=== PATIENT | female | born 1955 | race Caucasian/White ===

== ENCOUNTER → 2018-01-17 11:21 | Outpatient (CLI) | payer BC, SELFPAY ==
--- NOTE | 2018-01-17 12:38 | RAD_ITS ---
STUDY: BARIUM ENEMA. REASON FOR EXAM: Female, 62 years old. Incomplete colonoscopy. History of prior rectal carcinoma. FLUOROSCOPY TIME (if supplied): (0:30) minutes/seconds. Images were obtained. TECHNIQUE: A code clerk film was obtained. Following this, barium was introduced retrograde through the rectum. Entire colon was opacified. COMPARISON: None. FINDINGS: There is redundancy of the sigmoid colon. Scattered sigmoid diverticula. There is no evidence of antegrade or retrograde obstruction to the flow of contrast. No mass lesion is seen. RAD/Barium Enema No Air Cont IMPRESSION: Redundancy of the sigmoid colon. Scattered sigmoid diverticula. Electronically Signed: James Ramos MD at 13:57 EST Tel [phone], Service support ,
--- OUTSIDE RECORDS SUMMARY | 2018-03-05 06:50 | XMS RPT_ITS | Clinical Summary ---
:1955 Author Organization Formerly [facility], 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 Allergies, Adverse Reactions, Alerts Observed no known allergies at Results Date Name Value Unit Range Flag Description Office Visit: est annual MEDS REVIEW Done Documentation of current medications (procedure) NKMED T Documentation of current medications (procedure) FALLRSKASSES No Fall risk assessment MAMMOGRAM Normal Bilateral Breast Mammogram screening PAP SMEAR Normal General categories [Interpretation] of Cervical or vaginal smear or scraping by Cyto stain ORALTOBACUSE Never Tobacco smoking status NHIS SMOK STATUS Never smoker Tobacco use [facility] Lab Report: PAP I-G HPV Hi Risk [id number] Negative Negative GE use only - for LinkLogic import when terms are not otherwise specified Plan of Care Type Date Detail Pending order Mammogram, Screening, both breasts Procedures No information available. Vital Signs Date Name Value Unit Description BMI (Body Mass Index) 30.58 kg/m2 Body Mass Index [Ratio] Body Temperature 97.9 [degF] temperature E&M Body Temperature 36.61 Madelin temperature in centigrade E&M BP Diastolic 85 mm[Hg] blood pressure, diastolic - 8462-4 BP Systolic 132 mm[Hg] blood pressure, systolic - 8480-6 Heart Rate 92 /min pulse rate E&M - 8867-4 Height 62 [in_us] height E&M - 8302-2 Height 157.48 cm height in centimeters E&M Respiratory Rate 16 /min respiratory rate E&M - 9279-1 Weight Measured 167.2 [lb_av] weight E&M - 3141-9 Weight Measured 75.84 kg weight in kilograms E&M
--- OUTSIDE RECORDS SUMMARY | 2018-03-05 06:50 | XMS RPT_ITS | Clinical Summary ---
:1955 Author Organization [facility], [facility] Address [address] [place] [address] Phone Care Team Providers Name Role Phone Al LOGISTICS CLERK, Ana Carr Unavailable Conditions or Problems Problem Name Problem Onset Status Entry Provider Comment Standard Annotate Code Date Date Description Mammogram [id number] Active Ana S Screening yearly (SN Al mammography screening CT) LOGISTICS CLERK Routine [id number] Active Ana S Gynecologic gynecological (SN Al examination examination CT) LOGISTICS CLERK Medications Medication Instructions Start Date Stop Date [...] NHIS SMOK STATUS Never smoker Tobacco use [facility] Plan of Care Type Date Detail Appointment 11:00 AM Ana Melendez LOGISTICS CLERK, [address] [facility], [place], [address], Pending order Mammogram, Screening, both breasts Procedures [...]
--- OUTSIDE RECORDS SUMMARY | 2018-03-05 06:50 | XMS RPT_ITS ---
:1955 Author Organization OHIP Care Team Providers Name Role Phone Obdulia Alvarenga Attending Unavailable Obdulia Alvarenga Referring Unavailable Haley Levin Primary Care Unavailable FAVIOLA SHAHID (JEANINE) Attending Unavailable KRAIG PEDROZA Referring Unavailable OBDULIA ALVARENGA Admitting Unavailable OBDULIA ALVARENGA Attending Unavailable HALEY LEVIN Referring Unavailable PROBLEMS PROBLEMS DATE TYPE CONDITION / CODE ATTENDING STATUS SOURCE 01/17/2018 Active Encounter for OBDULIA ALVARENGA Active [facility] screening for [facility] malignant Repository neoplasm of colon / Z12.11(ICD-10) PROCEDURES PROCEDURES No Procedure Records FoundRESULTS RESULTS PROGRESS Observed: 01/17/2018 Status: COMPLETED Source: [place] 5:06 PM [facility] REPOSITORY HNO ID: [id number] Author: Faviola Shahid (Pa) Service: (none) Author Type: Physician Manager Billing Type: Progress Notes Filed: 01/17/2018 5:16 PM Note Text: HISTORY AND PHYSICAL Darby Larson 1955 REFERRING PHYSICIAN: Kraig Pedroza DO CHIEF COMPLAINT: Consult (colonoscopy) HPI: The patient is a 62 year old female referred for endoscopy. Darby notes a personal history of rectal cancer diagnosed in 2000, underwent resection and had radiation therapy. The patient notes she has had some issues with chronic anal irritation and stool leakage since that time. She denies any change in bowel habits, weight changes, blood in stools, black tarry stools or abdominal pain. Denies upper GI complaints. Her last colonoscopy was in January 2013 and she is due for surveillance colonoscopy. Patient's past medical history, in addition to cancer of the rectosigmoid junction, is significant for hyperlipidemia and hemorrhoids. She denies any cardiac or pulmonary issues. Denies problems with sedation in the past. PAST MEDICAL HISTORY Diagnosis Date - Hemorrhage of gastrointestinal tract, unspecified - Internal hemorrhoids without mention of complication - Malignant neoplasm of colon, unspecified site 2000 Colon cancer - Other and unspecified hyperlipidemia - Personal history of malignant neoplasm of rectum, rectosigmoid junction, and anus PAST SURGICAL HISTORY Procedure Laterality Date - CHEMOTHER, IV PUSH TECHNIQUE Chemotherapy - COLONOSCOP W/ OR W/O [facility] SPEC Colonoscopy - 2004 - COLONOSCOP W/ OR W/O BRSH SPEC 01/13/2013 Colonoscopy - COLONOSCOP W/ OR W/O BRS SPEC 01/17/2018 Colonoscopy - LIGATE FALLOPIAN TUBE 1979 - PAST SURGICAL HISTORY OF edg - PAST SURGICAL HISTORY OF port placement - PAST SURGICAL HISTORY OF 2000 resection of rectal cancer - RADIATION TREATMENT MANAGEMENT Radiation therapy - REMOVAL OF HEEL SPUR 01/04/2007, 02/22/2007 Both heels - SLING OPER STRES INCONTINENCE 08/20/07 Prefyx midurethral sling Current Outpatient Prescriptions: Calcium Carb-Magnesium Carb 400-200 mg ORAL Tab Take two tablets daily Docosahexanoic Acid-Eicosapent (FISH OIL) ORAL Cap Take two tablets daily FLAXSEED OIL 1,000 MG CAP 2 times daily GLUCOSAMINE-CHONDROITIN 250 MG-200 MG TAB two tablets, twice daily IBUPROFEN 200 MG TAB as necessary Lactobac no.41/Bifidobact no.7 (PROBIOTIC-10 ORAL) Take by mouth. Multivitamin (DAILY MULTIPLE) ORAL Tab Take one(1) tablet daily. No current facility-administered medications for this visit. 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 - Alcohol/Drug Father - Prostate Cancer Father REVIEW OF SYMPTOMS: The review of systems data was entered by the nurse and reviewed by me Nursing Notes: Paulette Jelani SANTACRUZ 01/14/2018 11:04 AM Signed REVIEW OF SYSTEMS: General: The patient NOTES fatigue, denies weight loss, denies weight gain, denies feeling hot, and denies feelings of cold. Eyes: The patient denies glaucoma, denies eye injury/surgery, wears glasses or contacts. Ear/Nose/Throat: The patient denies allergies, denies hayfever, denies ear infections, and denies bloody noses. Cardiovascular: The patient denies chest pain, denies heart disease, denies high blood pressure,denies cardiac stent, denies prior heart attack, denies irregular heart beat, denies high cholesterol, denies poor circulation, denies heart failure, other cardiac issues, denies claudication, denies cold feet, denies peripheral arterial stent. Respiratory: The patient denies tuberculosis, denies pneumonia, denies frequent cough, denies pulmonary embolism, denies shortness of breath, and denies coughing up blood. Gastrointestinal: The patient denies difficulty swallowing, denies acid reflux, denies ulcers, denies vomiting, denies jaundice/hepatitis, denies gallbladder problems, denies black or tarry stools, denies hemorrhoids, denies bleeding from rectum, denies diverticulitis, denies constipation, denies diarrhea, NOTES loss of stool control, and denies hernias. Kidney/Bladder: The patient denies kidney stones, denies urine infections, and denies bloody urine. Skin: The patient denies a history of skin cancer, denies bleeding/changing moles, and denies a history of skin rash. Neurologic: The patient denies a history of epilepsy/convulsions, denies headaches, denies head/spinal injuries, and denies stroke/TIA. Psychiatric: The patient denies psychiatric medications, denies depression, and denies voices, denies substance abuse. Endocrine: The patient denies thyroid disorders, denies diabetes, and denies hormonal problems. Hematologic: The patient denies a history of bruising, denies bleeding, and denies anemia, denies blood clots. Infections: The patient denies a history of measles and mumps, denies rheumatic fever, and denies sexually transmitted diseases. Musculoskeletal: The patient NOTES back pain/injury, denies back problems, denies sciatica, denies knee/foot trouble, NOTES arthritis, or denies gout. When was patient's last Mammogram screening? 01/2013 Last Colonoscopy: 01/2013 Paulette Palomares LPN I have confirmed and edited as necessary, the PFSH and ROS obtained by others. PHYSICAL EXAMINATION: General: The patient is 62 year old female, well nourished, well hydrated in no acute distress. The patient is oriented to time, place, and person. VITALS: Blood pressure 140/98, pulse 84, weight 73.1 kg (161 lb 3.2 oz). Body mass index is 29.97 kg/m?. HEENT: Normal cephalic, ataumatic, pupils are equally round, sclera are anicteric, mucous membranes are moist, oropharynx is clear. Neck has no masses, asymmetry or lymphadenopathy. Respiratory: Clear to auscultation and percussion. Normal respiratory excursion and pattern. Cardiac: Examination is regular rate and rhythm. Abdominal exam: Soft, nontender, with no palpable masses. No hepatosplenomegaly. No palpable hernias. Rectal exam: exam deferred Extremities: no clubbing, cyanosis or edema. No adenopathy. Other: LABORATORY VALUES: As Noted RADIOLOGIC STUDIES: As Noted Assessment IMPRESSION: personal history of colorectal cancer, encounter for surveillance colonoscopy PLAN: Will plan for colonoscopy. We discussed the risks and benefits of the planned endoscopy. I have informed the patient that complications can occur including failure to complete the endoscopy and perforation. The patient had the opportunity to ask questions concerning the planned endoscopy. My staff has also explained the procedure to the patient in understandable terms and has given the patient printed material concerning the procedure. The patient freely consents to surgery. I plan to use golytely bowel preparation for endoscopy Diagnoses: (Z12.11) Encounter for screening for malignant neoplasm of colon (primary encounter diagnosis) (Z85.048) Personal history of malignant neoplasm of rectum, rectosigmoid junction, and anus My findings have been communicated to Dr. Pedroza via shared medical record. This note will be forwarded to Dr. Haley Levin DO. Return to Clinic: The patient is instructed to follow-up with me after the testing has been completed. Faviola Shahid PA-C BARIUM ENEMA NO AIR Observed: 01/17/2018 Status: F Source: [facility] 12:38 PM [facility] REPOSITORY [facility] Imaging Services [address] [address] Barium Enema No Air Cont MR#: [id number] Acct: [id number] Name: DARBY LARSON Rep #: [id number] : 1955 F 62 From: James Ramos MD PCP: Haley Levin DO Status: REG CLI Study: Barium Enema No Air Cont Date of Exam: 01/17/18 Exam# [id number] Ordering Dr: Obdulia Alvarenga MD STUDY: BARIUM ENEMA. REASON FOR EXAM: Female, 62 years old. Incomplete colonoscopy. History of prior rectal carcinoma. FLUOROSCOPY TIME (if supplied): (0:30) minutes/seconds. Images were obtained. TECHNIQUE: A scout leaser film was obtained. Following this, barium was introduced retrograde through the rectum. Entire colon was opacified. COMPARISON: None. FINDINGS: There is redundancy of the sigmoid colon. Scattered sigmoid diverticula. There is no evidence of antegrade or retrograde obstruction to the flow of contrast. No mass lesion is seen. RAD/Barium Enema No Air Cont IMPRESSION: Redundancy of the sigmoid colon. Scattered sigmoid diverticula. Electronically Signed: James Ramos MD at 13:57 EST Tel [phone], Service support , CC: Obdulia Alvarenga MD; Haley Levin DO Reset Merchandiser: Signed NURSING PROG Observed: 01/17/2018 Status: COMPLETED Source: [place] 10:[address] [facility] REPOSITORY HNO ID: [id number] Author: Milagro WhiteheadRn) LILA Bah Service: (none) Author Type: Registered Nurse Type: Nursing Progress Note Filed: 01/17/2018 1:39 PM Note Text: Patient did not experience a fall prior to discharge. Patient did not experience a burn prior to discharge. Milagro Bah RN NURSING PROG Observed: 01/17/2018 Status: COMPLETED Source: [place] 10:40 AM [facility] REPOSITORY HNO ID: [id number] Author: Milagro Bah RN Service: (none) Author Type: Registered Nurse Type: Nursing Progress Note Filed: 01/17/2018 1:38 PM Note Text: Dr. Alvarenga at bedside and spoke with both pt and . Dr. Alvarenga arranged for pt to go to [facility] and have a Barium Enema at 1230 pm today. Pt doing well with no complaints. Milagro Bah RN PT ED Observed: 01/17/2018 Status: COMPLETED Source: [place] 10:20 AM [facility] REPOSITORY HNO ID: [id number] Author: Milagro Bah RN Service: (none) Author Type: Registered Nurse Type: Patient Education Filed: 01/17/2018 10:28 AM Note Text: POST OP LEARNING RESPONSE INSTRUCTION PROVIDED TO: Patient and Spouse METHOD OF INSTRUCTION: Individual instruction Written instruction - handouts Verbal instruction PATIENT / FAMILY RESPONSE: Verbalizes understanding of: MEDICAL REGIMEN-Importance of following prescribed medical regimen POST-PROCEDURE INSTRUCTIONS-Correct actions to take to reduce post procedure complications WORSENING CONDITION-Signs and symptoms of a worsening condition that warrant a call to the physician FOLLOW-UP PLAN: Patient instructed to call with any further issues Follow up phone call. Contact information given. SUPPLEMENTAL MATERIAL: Procedure discharge instructions REFERRAL (RECOMMENDATION): None Electronically Signed By: Milagro Bah RN In Department: AMBULATORY SURGERY NURSING PROG Observed: 01/17/2018 Status: COMPLETED Source: [place] 10:20 AM [facility] REPOSITORY HNO ID: [id number] Author: Milagro Bah RN Service: (none) Author Type: Registered Nurse Type: Nursing Progress Note Filed: 01/17/2018 1:39 PM Note Text: Pt sitting up in bed tolerating snack and drink. Denies pain or nausea. at bedside. Abd soft and nondistended. Dr. Alvarenga was by and spoke with pt's at 1005. Milagro Bah RN NURSING PROG Observed: 01/17/2018 Status: COMPLETED Source: [place] 10:01 AM [facility] REPOSITORY HNO ID: [id number] Author: Elisha Mcginnis RN Service: Nursing Author Type: Registered Nurse Type: Nursing Progress Note Filed: 01/17/2018 10:01 AM Note Text: Patient did not experience a fall within the Intraoperative area. Patient did not experience a burn within the Intraoperative area. Elisha Mcginnis RN NURSING PROG Observed: 01/17/2018 Status: COMPLETED Source: [place] 9:08 AM [facility] REPOSITORY HNO ID: [id number] Author: Milagro Bah RN Service: (none) Author Type: Registered Nurse Type: Nursing Progress Note Filed: 01/17/2018 9:11 AM Note Text: [facility] PRE-OP NURSING HAND OFF NOTE SBAR Hand off given to Elisha Mcginnis RN. Hand off was communicated verbally and at the patient's bedside and all questions were answered. FALLS/SHEA Patient did not experience a fall within the Preoperative area. Patient did not experience a burn within the Preoperative area. Milagro Bah RN PT ED Observed: 01/17/2018 Status: COMPLETED Source: [place] 8:28 AM [facility] REPOSITORY HNO ID: [id number] Author: Milagro Bah RN Service: (none) Author Type: Registered Nurse Type: Patient Education Filed: 01/17/2018 8:57 AM Note Text: PRE OP LEARNING ASSESSMENT PROCEDURE/SURGERY: GI PROCEDURES: Colonoscopy READINESS TO LEARN COGNITIVE ABILITY: Alert and oriented MOTIVATION TO LEARN: Eager FAMILY SUPPORT: High - Very involved in pt care PATIENT LEARNS BEST BY: Multiple Methods FACTORS AFFECTING LEARNING: None PHYSICAL LIMITATIONS AFFECTING LEARNING: None Electronically Signed By: Milagro Bah RN In Department: AMBULATORY SURGERY HISTORY PHYSICAL Observed: 01/17/2018 Status: COMPLETED Source: [place] 7:07 AM [facility] REPOSITORY HNO ID: [id number] Author: Obdulia Alvarenga Service: (none) Author Type: Physician Type: HANDP Filed: 01/17/2018 9:18 AM Note Text: CC: here for surveillance colonoscopy? ? HPI: aDrby Larson is a 62 year old female. The patient presented in 2000 with rectal bleeding. Colonoscopy revealed a cancerous polyp of the rectosigmoid area. The patient underwent transanal surgical resection. This was followed by chemotherapy and radiation. She has been disease free since then her last colonoscopy was 5 years ago. She presents for followup exam ? ? PAST MEDICAL HISTORY Other and Unspecified Hyperlipidemia Malignant Neoplasm of Colon, Unspecified Site - 2000 (Colon cancer) Hemorrhage of Gastrointestinal Tract, Unspecified Internal Hemorrhoids Without Mention of Complication Personal History of Malignant Neoplasm of Rectum, Rectosigmoid Junction, and Anus ? PAST SURGICAL HISTORY Past Surgical History of (edg) Colonoscop W/ Or W/O Brsh Spec (Colonoscopy - 2004) Past Surgical History of (port placement) Chemother, IV Push Technique (Chemotherapy) Radiation Treatment Management (Radiation therapy) Removal of Heel Spur - 01/04/2007, 02/22/2007 (Both heels) Sling Oper Stres Incontinence - 08/20/07 (Prefyx midurethral sling) Ligate Fallopian Tube - 1979 ? ? SOCIAL HISTORY Smoking Status: Never Smoker Smokeless Status: Never Used Alcohol Use: No ? ? FAMILY HISTORY Mother: Stroke (), Hypertension, Diabetes, Lipids (High Cholesterol), Coronary Artery Disease (Pt has had stints put in.) Father: Alcohol/Drug ? ? ALLERGIES: Seasonal [Other] ? MEDICATIONS: estradiol (VIVELLE-DOT) 0.05 mg/24 hr TWICE WEEKLY medroxyPROGESTERone (PROVERA) 2.5 mg tablet Take 1 tablet by mouth once daily. FLAXSEED OIL 1,000 MG CAP 2 times daily Calcium Carb-Magnesium Carb 400-200 mg ORAL Tab Take two tablets daily Docosahexanoic Acid-Eicosapent (FISH OIL) ORAL Cap Take two tablets daily Multivitamin (DAILY MULTIPLE) ORAL Tab Take one(1) tablet daily. GLUCOSAMINE-CHONDROITIN 250 MG-200 MG TAB two tablets, twice daily IBUPROFEN 200 MG TAB as necessary peg 3350-Electrolytes 236-22.74-6.74 gram suspension Take 240 mL by mouth one time only for 1 dose. REFER TO PRINTED PATIENT INSTRUCTIONS THAT WILL BE MAILED TO YOU ? ? ? ROS: All systems reviewed and negative except as above noted. ? ? ? PHYSICAL EXAM: ? VITALS: BP 150/80 Pulse 72 Wt 157 lb (71.2kg) General Appearance: Well appearing, alert, in no acute distress, well-hydrated, well nourished.. Skin: Skin color, texture, turgor normal, no suspicious rashes or lesions. Eyes: Anicteric sclera. Pupils are equally round and reactive to light. Extraocular movements are intact. Nose/Sinuses: Nares normal. Septum midline. Mucosa normal. No drainage or sinus tenderness.. Oropharynx: Lips, mucosa, and tongue normal, teeth and gingiva normal, oropharynx normal. Neck: Supple, no adenopathy; thyroid symmetric, normal size, no bruits. Back: good flexion and extension, good range of motion, no muscle tenderness, motor and sensory appear to be normal, no evidence of scoliosis. Lungs: Lungs clear to auscultation. No wheezing, rhonchi, rales. Heart: RRR without murmur, gallop, or rubs. No ectopy. Abdomen: Normal abdominal exam, Abdomen soft, non-tender. Bowel sounds normal. No masses, organomegaly. Extremities: No deformities, edema, skin discoloration, clubbing or cyanosis. . Musculoskeletal: Spine range of motion normal. Muscular strength intact, No joint swelling, deformity, or tenderness. ? 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 Her last exam was 5 years ago ? ? PLAN: Colonoscopy with IV today I have discussed the above with the patient. I have offered the patient the procedure of colonoscopy, possible biopsies. I have explained the procedure to the patient. I have counseled the patient as to the risks of the procedure, including but not limited to: infection, bleeding,perforation of the GI tract, inability to complete the procedure, injury to any intraabdominal organs such as liver/spleen, complications of anesthesia, etc. She understands and wishes to proceed. I have answered all questions to the patient?s satisfaction and the patient has no further questions. CNOV Observed: 01/14/2018 Status: COMPLETED Source: [place] 10:00 AM [facility] REPOSITORY [facility] GILES LARSONA S ([id number]) 1955 F Date Time Provider Department 01/14/18 10:00 AM FAVIOLA SHAHID (PA) During your visit today, we recorded the following information about you: Pulse Blood pressure Weight 84/minute 140/98 73.1 kg Paulette Palomares LPN 01/14/2018 11:04 AM Signed REVIEW OF SYSTEMS: General: The patient NOTES fatigue, denies weight loss, denies weight gain, denies feeling hot, and denies feelings of cold. Eyes: The patient denies glaucoma, denies eye injury/surgery, wears glasses or contacts. Ear/Nose/Throat: The patient denies allergies, denies hayfever, denies ear infections, and denies bloody noses. Cardiovascular: The patient denies chest pain, denies heart disease, denies high blood pressure,denies cardiac stent, denies prior heart attack, denies irregular heart beat, denies high cholesterol, denies poor circulation, denies heart failure, other cardiac issues, denies claudication, denies cold feet, denies peripheral arterial stent. Respiratory: The patient denies tuberculosis, denies pneumonia, denies frequent cough, denies pulmonary embolism, denies shortness of breath, and denies coughing up blood. Gastrointestinal: The patient denies difficulty swallowing, denies acid reflux, denies ulcers, denies vomiting, denies jaundice/hepatitis, denies gallbladder problems, denies black or tarry stools, denies hemorrhoids, denies bleeding from rectum, denies diverticulitis, denies constipation, denies diarrhea, NOTES loss of stool control, and denies hernias. Kidney/Bladder: The patient denies kidney stones, denies urine infections, and denies bloody urine. Skin: The patient denies a history of skin cancer, denies bleeding/changing moles, and denies a history of skin rash. Neurologic: The patient denies a history of epilepsy/convulsions, denies headaches, denies head/spinal injuries, and denies stroke/TIA. Psychiatric: The patient denies psychiatric medications, denies depression, and denies voices, denies substance abuse. Endocrine: The patient denies thyroid disorders, denies diabetes, and denies hormonal problems. Hematologic: The patient denies a history of bruising, denies bleeding, and denies anemia, denies blood clots. Infections: The patient denies a history of measles and mumps, denies rheumatic fever, and denies sexually transmitted diseases. Musculoskeletal: The patient NOTES back pain/injury, denies back problems, denies sciatica, denies knee/foot trouble, NOTES arthritis, or denies gout. When was patient's last Mammogram screening? 01/2013 Last Colonoscopy: 01/2013 Paulette Shahid PA-C 01/17/2018 5:16 PM Signed HISTORY AND PHYSICAL Darby Larson 1955 REFERRING PHYSICIAN: Kraig Pedroza DO CHIEF COMPLAINT: Consult (colonoscopy) HPI: The patient is a 62 year old female referred for endoscopy. Darby notes a personal history of rectal cancer diagnosed in 2000, underwent resection and had radiation therapy. The patient notes she has had some issues with chronic anal irritation and stool leakage since that time. She denies any change in bowel habits, weight changes, blood in stools, black tarry stools or abdominal pain. Denies upper GI complaints. Her last colonoscopy was in January 2013 and she is due for surveillance colonoscopy. Patient's past medical history, in addition to cancer of the rectosigmoid junction, is significant for hyperlipidemia and hemorrhoids. She denies any cardiac or pulmonary issues. Denies problems with sedation in the past. PAST MEDICAL HISTORY Diagnosis Date - Hemorrhage of gastrointestinal tract, unspecified - Internal hemorrhoids without mention of complication - Malignant neoplasm of colon, unspecified site 2000 Colon cancer - Other and unspecified hyperlipidemia - Personal history of malignant neoplasm of rectum, rectosigmoid junction, and anus PAST SURGICAL HISTORY Procedure Laterality Date - CHEMOTHER, IV PUSH TECHNIQUE Chemotherapy - COLONOSCOP W/ OR W/O [facility] SPEC Colonoscopy - 2004 - COLONOSCOP W/ OR W/O BRS SPEC 01/13/2013 Colonoscopy - COLONOSCOP W/ OR W/O BRS SPEC 01/17/2018 Colonoscopy - LIGATE FALLOPIAN TUBE 1979 - PAST SURGICAL HISTORY OF edg - PAST SURGICAL HISTORY OF port placement - PAST SURGICAL HISTORY OF 2000 resection of rectal cancer - RADIATION TREATMENT MANAGEMENT Radiation therapy - REMOVAL OF HEEL SPUR 01/04/2007, 02/22/2007 Both heels - SLING OPER STRES INCONTINENCE 08/20/07 Prefyx midurethral sling Current Outpatient Prescriptions: Calcium Carb-Magnesium Carb 400-200 mg ORAL Tab Take two tablets daily Docosahexanoic Acid-Eicosapent (FISH OIL) ORAL Cap Take two tablets daily FLAXSEED OIL 1,000 MG CAP 2 times daily GLUCOSAMINE-CHONDROITIN 250 MG-200 MG TAB two tablets, twice daily IBUPROFEN 200 MG TAB as necessary Lactobac no.41/Bifidobact no.7 (PROBIOTIC-10 ORAL) Take by mouth. Multivitamin (DAILY MULTIPLE) ORAL Tab Take one(1) tablet daily. No current facility-administered medications for this visit. 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 - Alcohol/Drug Father - Prostate Cancer Father REVIEW OF SYMPTOMS: The review of systems data was entered by the nurse and reviewed by il Nursing Notes: Paulette Palomares LPN 01/14/2018 11:04 AM Signed REVIEW OF SYSTEMS: General: The patient NOTES fatigue, denies weight loss, denies weight gain, denies feeling hot, and denies feelings of cold. Eyes: The patient denies glaucoma, denies eye injury/surgery, wears glasses or contacts. Ear/Nose/Throat: The patient denies allergies, denies hayfever, denies ear infections, and denies bloody noses. Cardiovascular: The patient denies chest pain, denies heart disease, denies high blood pressure,denies cardiac stent, denies prior heart attack, denies irregular heart beat, denies high cholesterol, denies poor circulation, denies heart failure, other cardiac issues, denies claudication, denies cold feet, denies peripheral arterial stent. Respiratory: The patient denies tuberculosis, denies pneumonia, denies frequent cough, denies pulmonary embolism, denies shortness of breath, and denies coughing up blood. Gastrointestinal: The patient denies difficulty swallowing, denies acid reflux, denies ulcers, denies vomiting, denies jaundice/hepatitis, denies gallbladder problems, denies black or tarry stools, denies hemorrhoids, denies bleeding from rectum, denies diverticulitis, denies constipation, denies diarrhea, NOTES loss of stool control, and denies hernias. Kidney/Bladder: The patient denies kidney stones, denies urine infections, and denies bloody urine. Skin: The patient denies a history of skin cancer, denies bleeding/changing moles, and denies a history of skin rash. Neurologic: The patient denies a history of epilepsy/convulsions, denies headaches, denies head/spinal injuries, and denies stroke/TIA. Psychiatric: The patient denies psychiatric medications, denies depression, and denies voices, denies substance abuse. Endocrine: The patient denies thyroid disorders, denies diabetes, and denies hormonal problems. Hematologic: The patient denies a history of bruising, denies bleeding, and denies anemia, denies blood clots. Infections: The patient denies a history of measles and mumps, denies rheumatic fever, and denies sexually transmitted diseases. Musculoskeletal: The patient NOTES back pain/injury, denies back problems, denies sciatica, denies knee/foot trouble, NOTES arthritis, or denies gout. When was patient's last Mammogram screening? 01/2013 Last Colonoscopy: 01/2013 Paulette Palomares LPN I have confirmed and edited as necessary, the PFSH and ROS obtained by others. PHYSICAL EXAMINATION: General: The patient is 62 year old female, well nourished, well hydrated in no acute distress. The patient is oriented to time, place, and person. VITALS: Blood pressure 140/98, pulse 84, weight 73.1 kg (161 lb 3.2 oz). Body mass index is 29.97 kg/m?. HEENT: Normal cephalic, ataumatic, pupils are equally round, sclera are anicteric, mucous membranes are moist, oropharynx is clear. Neck has no masses, asymmetry or lymphadenopathy. Respiratory: Clear to auscultation and percussion. Normal respiratory excursion and pattern. Cardiac: Examination is regular rate and rhythm. Abdominal exam: Soft, nontender, with no palpable masses. No hepatosplenomegaly. No palpable hernias. Rectal exam: exam deferred Extremities: no clubbing, cyanosis or edema. No adenopathy. Other: LABORATORY VALUES: As Noted RADIOLOGIC STUDIES: As Noted Assessment IMPRESSION: personal history of colorectal cancer, encounter for surveillance colonoscopy PLAN: Will plan for colonoscopy. We discussed the risks and benefits of the planned endoscopy. I have informed the patient that complications can occur including failure to complete the endoscopy and perforation. The patient had the opportunity to ask questions concerning the planned endoscopy. My staff has also explained the procedure to the patient in understandable terms and has given the patient printed material concerning the procedure. The patient freely consents to surgery. I plan to use golytely bowel preparation for endoscopy Diagnoses: (Z12.11) Encounter for screening for malignant neoplasm of colon (primary encounter diagnosis) (Z85.048) Personal history of malignant neoplasm of rectum, rectosigmoid junction, and anus My findings have been communicated to Dr. Pedroza via shared medical record. This note will be forwarded to Dr. Haley Levin DO. Return to Clinic: The patient is instructed to follow-up with me after the testing has been completed. Faviola Shahid PA-C Referring Provider: KRAIG PEDROZA [[id number]] Allergies As of Date: 01/14/2018 Noted Allergy Reaction Seasonal [Other] 03/14/2006 Date Reviewed: 01/14/2018 Reviewed by: Faviola Shahid (Pa) - Fully Assessed Reason for Visit: Consult [173] Cmt: colonoscopy Primary Visit Diagnosis:Personal history of malignant neoplasm of rectum, rectosigmoid junction, and anus [Z85.048] Other Visit Diagnosis:Encounter for screening for malignant neoplasm of colon [Z12.11] Order(s):[] peg 3350-Electrolytes (GOLYTELY) 236-22.74-6.74 -5.86 gram suspensionTake 4,000 mL by mouth one time only for 1 dose.Disp: 1 BottleRfl: 0 Prescriptions as of 01/14/2018 Sig: * CALCIUM CARB-MAGNESIUM CARB 4* Take two tablets daily * FISH OIL 500 MG CAPSULE Take two tablets daily * FLAXSEED OIL 1,000 MG CAPSULE 2 times daily * GLUCOSAMINE-CHONDROITIN 250 M* two tablets, twice daily * IBUPROFEN 200 MG TABLET as necessary PROBIOTIC-10 ORAL Take by mouth. * DAILY MULTIPLE TABLET Take one(1) tablet daily. PEG 3350-ELECTROLYTES 236 GRA* Take 4,000 mL by mouth one ti* X ESTRADIOL 0.0375 MG/24 HR KENNETH* Apply 1 Patch as directed twi* Patient not taking: Reported on 01/14/2018 X MEDROXYPROGESTERONE 2.5 MG TA* Take 1 tablet by mouth once d* Patient not taking: Reported on 01/14/2018 Problem List As Of Date 01/14/2018 Noted Resolved HYPERLIPIDEMIA NEC/NOS [E78.5] PMH - PAST MEDICAL HISTORY OF More... CALCANEAL SPUR [M77.30] INVALID FOR* MALIG NEOPLASM RECTOSIGMOID JCT [C19] INVALID FOR* Visit Notes: >> Paulette Palomares LPN Mon Jan 14, 2018 11:03 AM Status: Signed REVIEW OF SYSTEMS: General: The patient NOTES fatigue, denies weight loss, denies weight gain, denies feeling hot, and denies feelings of cold. Eyes: The patient denies glaucoma, denies eye injury/surgery, wears glasses or contacts. Ear/Nose/Throat: The patient denies allergies, denies hayfever, denies ear infections, and denies bloody noses. Cardiovascular: The patient denies chest pain, denies heart disease, denies high blood pressure,denies cardiac stent, denies prior heart attack, denies irregular heart beat, denies high cholesterol, denies poor circulation, denies heart failure, other cardiac issues, denies claudication, denies cold feet, denies peripheral arterial stent. Respiratory: The patient denies tuberculosis, denies pneumonia, denies frequent cough, denies pulmonary embolism, denies shortness of breath, and denies coughing up blood. Gastrointestinal: The patient denies difficulty swallowing, denies acid reflux, denies ulcers, denies vomiting, denies jaundice/hepatitis, denies gallbladder problems, denies black or tarry stools, denies hemorrhoids, denies bleeding from rectum, denies diverticulitis, denies constipation, denies diarrhea, NOTES loss of stool control, and denies hernias. Kidney/Bladder: The patient denies kidney stones, denies urine infections, and denies bloody urine. Skin: The patient denies a history of skin cancer, denies bleeding/changing moles, and denies a history of skin rash. Neurologic: The patient denies a history of epilepsy/convulsions, denies headaches, denies head/spinal injuries, and denies stroke/TIA. Psychiatric: The patient denies psychiatric medications, denies depression, and denies voices, denies substance abuse. Endocrine: The patient denies thyroid disorders, denies diabetes, and denies hormonal problems. Hematologic: The patient denies a history of bruising, denies bleeding, and denies anemia, denies blood clots. Infections: The patient denies a history of measles and mumps, denies rheumatic fever, and denies sexually transmitted diseases. Musculoskeletal: The patient NOTES back pain/injury, denies back problems, denies sciatica, denies knee/foot trouble, NOTES arthritis, or denies gout. When was patient's last Mammogram screening? 01/2013 Last Colonoscopy: 01/2013 Paulette Palomares LPN Prescriptions ordered this encounter Disp Refills Start End PEG 3350-ELECTROLYTES 236 GRAM-22.74* 1 Eitan* 0 01/14/2018 01/14/2018 Route: ORAL Sig: Take 4,000 mL by mouth one time only for 1 dose. Follow-up and Disposition History Recorded Encounter Status:Closed by FAVIOLA SHAHID PA-C on 01/17/18 HOSP Observed: 01/14/2018 Status: COMPLETED Source: [place] 12:00 AM [facility] REPOSITORY Patient:Darby Larson MRN: <[id number]> Height:5' 1.5(1.562 m) Weight:161 lb 3.2 oz (73.12 kg) Outpatient Medications as of 01/17/18: Calcium Carb-Magnesium Carb 400-200 mg ORAL Tab Docosahexanoic Acid-Eicosapent (FISH OIL) ORAL Cap FLAXSEED OIL 1,000 MG CAP GLUCOSAMINE-CHONDROITIN 250 MG-200 MG TAB IBUPROFEN 200 MG TAB Lactobac no.41/Bifidobact no.7 (PROBIOTIC-10 ORAL) Multivitamin (DAILY MULTIPLE) ORAL Tab Admission/Clinic Administered Medications as of 01/17/18: lactated ringers infusion Problem List: Other and unspecified hyperlipidemia [E78.5] PMH - PAST MEDICAL HISTORY OF [] Calcaneal spur [M77.30] 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 Rosa Clement Psr Progress Notes ([facility]): Rosa Clement Psr 01/04/2018 11:32 AM Signed [facility] OPEN ACCESS QUESTIONNAIRE 1. Are you or could you be ? No 2. Are you currently having any stomach/gastrointestinal issues at this time such as constipation, diarrhea, abdominal pain, rectal bleeding etc? No 3. Do you have an implanted device such as a defibrillator, pacemaker, Cardiac Stent or deep brain stimulation device? No 4. Do you have any new or past cardiac (heart) or pulmonary (lung) issues? No 5. Is the patient's BMI 40 or greater? No:There is no height or weight on file to calculate BMI.. Last Wt 02/19/13 : 69.4 kg (153 lb) Last Ht 02/19/13 : 156.2 cm (5' 1.5) 6. Have you had difficulty with prior sedations or complications with other procedures? No 7. Have you had difficulty with anesthesia previously re: ? Difficult intubation? No ? Other difficulty or allergic reaction to anesthesia other than post op N/V? No 8. Do you currently use oxygen or a breathing machine at night? No 9. Do you take any narcotics, depression or anti-Anxiety medications or 3 or more prescription drugs on a daily basis? No 10. Do you use any illegal or recreational drugs? No 11. Have you been hospitalized in the past 6 weeks? No 12. Are you on dialysis or have Chronic Kidney Disease? No 13. Have you been diagnosed with chronic liver disease such as hepatitis or cirrhosis? No 14. Do you have a seizure disorder? No 15. Do you have difficulty swallowing? No 16. Do you have ulcerative colitis or Crohn's disease? No 17. Do you take any Blood thinners, including Aspirin or fish oil? No 18. Do you have any blood disorders (re:hemophiliac)? No 19. Are you Diabetic? No 20. Any other important health information we should be made aware of prior to your colonoscopy? No 21. Any alcohol use: No. To be completed by LIP: Patient appropriate for Open Access Colonoscopy: Yes: appropriate for Open Access Procedure Checklist: Prior to closing the encounter: ? Complete questionnaire: Yes ? Confirm Prep order has been Ordered/Pended: Yes. ? Patient's procedure could be delayed if not given the script for the prep. Please ensure the prep is escripted to pharmacy or printed. Instructions for the prep will print upon filing or pending this smartset. ? Please send all open access questionnaires to [facility] Sched Pool #[id number] Rosa Clement Psr 01/04/2018 11:30 AM Signed Health Information For Patients and the Community How to Prepare for Your Colonoscopy Using Golytely, Nulytely, Trilyte or Colyte Preparations IMPORTANT - Please Read These Instructions at Least 2 Weeks Before Your Colonoscopy Celis Instructions: ?Your bowel must be empty so that your doctor can clearly view your colon. Follow all of the instructions in this handout EXACTLY as they are written. If you do NOT follow the directions for when to start drinking the bowel preparation (see next page), your colonoscopy WILL be cancelled. ?Do NOT eat any solid food the ENTIRE day before your colonoscopy. ?Buy your bowel preparation at least 5 days before your colonoscopy. ?Do NOT mix the solution until the day before your colonoscopy. Designated Web Machine Tender on the Day of Your Exam A responsible family member or friend MUST come with you to your colonoscopy and REMAIN in the endoscopy area until you are discharged! You are NOT ALLOWED to drive, take a taxi or bus, or leave the Endoscopy Center ALONE. If you do not have a responsible truck driver salesperson (family member or friend) with you to take you home, your exam cannot be done with sedation and will be cancelled. Medications Some of the medicines you take may need to be stopped or adjusted before your colonoscopy. You MUST call the doctor who ordered any of the following medicines at least 2 weeks before your colonoscopy. ?Blood thinners -- such as Coumadin? (warfarin), Plavix? (clopidogrel), Ticlid? (ticlopidine hydrochloride), Agrylin? (anagrelide), Xarelto? (Rivaroxaban), Pradaxa? (Dabigatran), Eliquis? (Apixaban), and Effient? (Prasugrel). ?Insulin or diabetes pills. Please call the doctor that monitors your glucose levels. Your insulin dosage may need to be adjusted due to the diet restrictions required with this bowel preparation. (Please bring your diabetes medicines with you on the day of your procedure.) If you take aspirin, take it and ALL other medications prescribed by your doctor. On the day of your colonoscopy, take your medications with a sip of water. Revised 03/2016 1 Five (5) Days Before Your Colonoscopy ?Do NOT take medicines that stop diarrhea -- such as Imodium?, Kaopectate?, or Pepto Bismol?. ?Do NOT take fiber supplements -- such as Metamucil?, Citrucel?, or Perdiem?. ?Do NOT take products that contain iron -- such as multi-vitamins -- (the label lists what is in the products). ?Do NOT take vitamin E. Buy the prescription bowel preparation solution at your local pharmacy or drugstore pharmacy. Three (3) Days Before Your Colonoscopy Do NOT eat high-fiber foods -- such as popcorn, beans, seeds (flax, sunflower, quinoa), multigrain bread, nuts, salad/vegetables, or fresh and dried fruit. One (1) Day Before Your Colonoscopy Only drink clear liquids the ENTIRE DAY before your colonoscopy. Do NOT eat any solid foods. Drink at least 8 ounces of clear liquids every hour after waking up. The clear liquids you can drink include: ?water, apple, or white grape juice; broth; coffee or tea (without milk or creamer); clear carbonated beverages such as raquel radha or lemon-jamul soda; Gatorade? or other sports drinks (not red); Drake-Aid? or other flavored drinks (not red). You may eat plain jello or other gelatins (not red) or popsicles (not red). Do NOT drink alcohol on the day before or the day of the procedure. 2 Revised 03/2016 When to Mix and Drink Your Bowel Prep Follow the instructions on the label. After mixing, place the solution in the refrigerator for a couple of hours before drinking. You may add the flavor packet that came with the bowel preparation. DO NOT add ice, sugar or any flavorings to the solution. Evening Before Your Colonoscopy ?Start drinking the bowel preparation at 6 PM the evening before your colonoscopy. Drink an 8-oz glass of bowel preparation every 10 minutes. You must finish drinking the solution by 9 PM the night before your scheduled procedure. ?You may continue to drink clear liquids only until midnight. Do NOT eat or drink ANYTHING after midnight the night before your procedure or your procedure may be cancelled. This is for your safety and will reduce the risk of having any food or liquid in your stomach move into your lungs (aspiration) during a procedure. If you take aspirin, take it and ALL other prescribed medicines with a sip of water on the day of your colonoscopy. Contact Information: If you are unable to keep your appointment or have any questions about the instructions, please call the facility where the procedure is being performed. Call between the hours of 8:00 AM and 5:00 PM. If you are calling after 5:00 PM, please call Nurse non profit job titles at [phone]. [facility] [address] [address] Index # [id number] Revised 03/2016 3 Colonoscopy Procedure Overview Please Read Prior to the Procedure What is a Colonoscopy A colonoscopy is an outpatient procedure in which the inside of the large intestine (colon and rectum) is examined. A colonoscopy is commonly used to evaluate gastrointestinal symptoms, such as rectal and intestinal bleeding, abdominal pain, or changes in bowel habits. Colonoscopies are also performed in individuals without symptoms to check for colorectal polyps or cancer. A screening colonoscopy is recommended for anyone 50 years of age and older, and for anyone with parents, siblings or children with a history of colorectal cancer or polyps. What Happens Before a Colonoscopy To have a successful colonoscopy, your bowel must be empty so that your physician can clearly view the colon. To do this, it is very important to read and follow all of the instructions given to you at least 2 weeks BEFORE your exam. If your bowel is not empty, your colonoscopy will not be successful and may have to be repeated. If you feel nauseated or vomit while taking the bowel preparation, wait 30 minutes before drinking more fluid and start with small sips of solution. Some activity (such as walking) or a few soda crackers may help decrease the nausea you are feeling. If the nausea persists, please contact nurse oncology navigator at [phone]. You may experience skin irritation around the anus due to the passage of liquid stools. To prevent and treat skin irritation, you should: ?Apply Vaseline? or Desitin? ointment to the skin around the anus before drinking the bowel preparation medications. These products can be purchased at any drugstore. ?Wipe the skin after each bowel movement with disposable wet wipes instead of toilet paper. These are found in the toilet paper area of the store. ?Sit in a bathtub filled with warm water for 10 to 15 minutes after you finish passing a stool; after soaking, blot the skin dry with a soft cloth, apply Vaseline? or Desitin? ointment to the anal area, and place a cotton ball just outside your anus to absorb leaking fluid. What Happens During a Colonoscopy During a colonoscopy, an experienced physician uses a colonoscope (a long, flexible instrument about 1/2 inch in diameter) to view the lining of the colon. The colonoscope is inserted into the rectum and advanced through the large intestine. If necessary during a colonoscopy, small amounts of tissue can be removed for analysis (a biopsy) and polyps can be identified and entirely removed. In many cases, a colonoscopy allows accurate diagnosis and treatment of colorectal problems without the need for a major operation. Revised 03/2016 5 ?You are asked to wear a hospital gown and an IV will be started. ?You are given a pain reliever and a sedative intravenously (in your vein). You will feel relaxed and somewhat drowsy. ?You will lie on your left side, with your knees drawn up towards your chest. ?A small amount of air is used to expand the colon so the physician can see the colon figueroa. ?You may feel mild cramping during the procedure. Cramping can be reduced by taking slow, deep breaths. ?The colonoscope is slowly withdrawn while the lining of your bowel is carefully examined. ?The procedure lasts from 30 minutes to 1 hour. What Happens After a Colonoscopy ?You will stay in a recovery room for observation until you are ready for discharge. ?You may feel some cramping or a sensation of having gas, but this quickly passes. ?If sedation has been given, a responsible family member or friend must drive you home. ?Avoid alcohol, driving, and operating machinery for 24 hours following the procedure. ?Unless otherwise instructed, you may immediately return to your normal diet. We recommend you wait until the day after your procedure to resume normal activities. ?If polyps were removed or a biopsy was taken, the physician performing your colonoscopy will tell you when it is safe to resume taking your blood thinners. ?If a biopsy was taken or a polyp was removed, you may notice a little amount of rectal bleeding for 1 to 2 days after the procedure. If you have a large amount of rectal bleeding, high or persistent fevers, or severe abdominal pain within the next 2 weeks, please go to your local emergency room and call the physician who performed your exam. 6 Revised 03/2016 ?Copyright 9184-8125 [facility]. All rights reserved. Revised 03/2016 ALLERGIES ALLERGIES DATE TYPE / CODE NAME / CODE REACTION SEVERITY SOURCE 03/14/2006 Miscellaneous OTHER [facility] Allergy/[id number]([facility] NOMED CT) Repository ENCOUNTERS ENCOUNTERS ADMIT/DISCHARGE ACCOUNT ADMITTING ENCOUNTER LOCATION SOURCE NUMBER CLASS 01/17/2018 [id number] Ambulatory [facility] ing:RAD Repository 01/17/2018/01/18/20 [id number] OBDULIA ALVARENGA Ambulatory [address] Repository 01/14/2018/01/19/[id number] Repository PAYERS PAYERS ENCOUNTER GUARANTOR PAYER SUBSCRIBER SOURCE 01/17/2018 DARBY Carr Primary YURY Galindo [id number] FRANC Insurance:ANTHEMPolic BASSAMDOB: [facility] Number: [id number] [address]Gzt: (275) [id number] Repository [phone] () Date:[id number] [place] [id number]: 01/17/2018 Secondary NOT GIVENMICHAEL AndersMateo Insurance:SELF PAY [facility] Number: Effective Repository Date:2018-01-17
--- OUTSIDE RECORDS SUMMARY | 2018-03-05 06:50 | XMS RPT_ITS | Clinical Summary ---
:1955 Author Organization [facility] Address [address] [place] [address] Phone Care Team Providers Name Role Phone Al TELECOM SPECIALIST, Ana Carr Unavailable Conditions or Problems Problem Name Problem Onset Status Entry Provider Comment Standard Annotate Code Date Date Description Mammogram 59099689 Active Ana S Screening yearly (SN Al mammography screening CT) TELECOM SPECIALIST Routine [id number] Active Ana S Gynecologic gynecological (SN Al examination examination CT) TELECOM SPECIALIST Medications Medication Instructions Start Date Stop Date [...] NHIS SMOK STATUS Never smoker Tobacco use [facility] Plan of Care Type Date Detail Appointment 11:00 AM Ana Melendez TELECOM SPECIALIST, [address] [facility], [address] Floor, [place], [id number], Pending order Mammogram, Screening, both breasts Procedures [...]
--- OUTSIDE RECORDS SUMMARY | 2018-03-05 06:50 | XMS RPT_ITS | Clinical Summary ---
:1955 Author Organization [facility], [facility] Address [address] [place] [address] Phone Care Team Providers Name Role Phone Vivienne Bonilla MD Unavailable Conditions or Problems Problem Name Problem Onset Status Entry Provider Comment Standard Annotate Code Date Date Description Mammogram 08790689 Active Ana S Screening yearly (SN Al mammography screening CT) SKIN PEELING MACHINE OPERATOR Routine [id number] Active Ana S Gynecologic gynecological (SN Al examination examination CT) SKIN PEELING MACHINE OPERATOR Medications Medication Instructions Start Date Stop Date [...] NHIS SMOK STATUS Never smoker Tobacco use [facility] Lab Report: PAP I-G HPV [...]
--- OUTSIDE RECORDS SUMMARY | 2018-03-05 06:50 | XMS RPT_ITS | Clinical Summary ---
:1955 Author Organization [facility], [facility] Address [address] [place] [address] Phone Care Team Providers Name Role Phone Vivienne Bonilla MD Unavailable Conditions or Problems Problem Name Problem Onset Status Entry Provider Comment Standard Annotate Code Date Date Description Mammogram [id number] Active Ana S Screening yearly (SN Al mammography screening CT) BODY DESIGN CHECKER Routine 11960628 Active Ana S Gynecologic gynecological (SN Al examination examination CT) BODY DESIGN CHECKER Medications Medication Instructions Start Date Stop Date [...] NHIS SMOK STATUS Never smoker Tobacco use [facility] Lab Report: PAP I-G HPV Hi Risk [...]
== END ==
PROVIDERS: Family Provider Family Medicine; PCP Family Medicine; Referring Provider Surgery; Visit Provider Surgery
DX: Z53.8 Procedure and treatment not carried out for other reasons (principal); K57.30 Diverticulosis of large intestine without perforation or abscess without bleeding; Z85.048 Personal history of other malignant neoplasm of rectum, rectosigmoid junction, and anus
CPT/HCPCS: 74270

== ENCOUNTER → 2018-08-05 | Outpatient (CLI) | payer BC, SELFPAY ==
--- NOTE | 2018-08-05 09:43 | RAD_ITS ---
STUDY: X-RAY - LEFT SHOULDER REASON FOR EXAM: Female, 62 years old. Left shoulder pain TECHNIQUE: 3 view(s) of the shoulder. COMPARISON: None. FINDINGS: Normal glenohumeral articulation. Normal acromioclavicular joint. Normal acromion. Normal humeral head and visualized proximal humerus. The soft tissue structures are unremarkable. Normal visualized pulmonary apex. RAD/Shoulder min 2 Views IMPRESSION: Normal x-ray examination of the shoulder. Electronically Signed: Richard Bauer, at 10:11 EDT Tel , Service support ,
== END | disposition home or self-care (01) ==
LOC: MTRAD 09:41
PROVIDERS: Family Provider Family Medicine; PCP Family Medicine; Referring Provider Family Medicine; Visit Provider Family Medicine
DX: M25.512 Pain in left shoulder (principal)
CPT/HCPCS: 73030

== ENCOUNTER → 2018-11-11 09:36 | Outpatient (CLI) | payer BC, SELFPAY ==
[2018-11-11 12:31] LABS: Erythrocyte Sedimentation Rate 25 mm/hr (0-30)
[2018-11-11 12:45] LABS: ALB/GLOB Ratio 0.9 RATIO (0.9-2.4); AST(SGOT) 18 U/L (15-37); Alanine Aminotransfer ALT/SGPT 27 U/L (13-56); Albumin, Serum 3.6 g/dL (3.2-5.0); Alkaline Phosphatase 86 U/L (45-117); Anion Gap 10 (5-15); BUN 12 mg/dL (7-18); BUN/Creat Ratio 16.6 RATIO (10-20); CRP < 2.90 mg/L (0.0-3.0); Calcium,Total 8.7 mg/dL (8.5-10.1); Chloride 107 mmol/L (98-107); Creatinine, Serum 0.72 mg/dL (0.55-1.02); EST Glomerular Filtration Rate 87 mL/min (>60); Est Glom Filt Rate - Afr Amer 105 mL/min (>60); Globulin 3.9 g/dL (2.2-4.2); Glucose 103 mg/dL (74-106); Potassium 4.2 mmol/L (3.5-5.1); Protein, Total 7.5 g/dL (6.4-8.2); Rheumatoid Factor < 10.0 IU/mL (<15); Sodium Level 142 mmol/L (136-145)
[2018-11-13 13:11] LABS: CCP IgG Antibodies 9 units (0-19)
[2018-11-13 13:21] LABS: ANTINUCLEAR ANTIBODIES DIRECT Negative (Negative)
== END ==
PROVIDERS: Family Provider Family Medicine; PCP Family Medicine; Visit Provider Family Medicine
DX: M25.50 Pain in unspecified joint (principal); M79.10 Myalgia, unspecified site; L30.8 Other specified dermatitis
CPT/HCPCS: 36415; 80053; 85652; 86038; 86140; 86200; 86225; 86235; 86431

== ENCOUNTER → 2018-12-03 | Outpatient (CLI) | payer SELFPAY ==
--- NOTE | 2018-12-03 12:30 | CT_ITS ---
STUDY: CARDIAC CALCIUM SCORING - CT CHEST REASON FOR EXAM: Female, 63 years old. Hyperlipidemia. RADIATION DOSAGE (If Supplied By Facility): CTDIvol = ( 12.19 ) mGy, DLP = ( 195.04 ) mGycm TECHNIQUE: Axial non-enhanced images were acquired through the heart for the sole purpose of measuring coronary artery calcium. Individualized dose optimization techniques were used for this CT. COMPARISON: None. FINDINGS: Please see the patient's medical record for a personalized calcium score. There is dependent atelectasis noted in the right lower lobe. The visualized lungs are otherwise clear. The visualized soft tissues are within normal limits. CT/Limited Chest CT w/CCTA IMPRESSION: Please see the patient's medical record for a personalized calcium score. Please go to: [email or web address] , for a description of the calculator. Electronically Signed: Pola Melendrez, at 19:13 EDT Tel , Service support ,
[2018-12-03 12:49] VITALS: BP 166/92; PULSE 67; RESP 14; O2SAT 97; BMI 29.8
--- NOTE | 2018-12-03 16:29 | CA.SCORE ---
Calcium Scoring Date of Study:: 12/03/18 Coronary Calcium Scoring: High-resolution Computed Tomographic imaging of the chest was performed on [12/03/2018], with particular attention paid to the coronary arteries. Images from the examination were analyzed for the presence and extent of coronary artery calcification , using coronary calcium quantification software. The patient tolerated the procedure well and there were no complications. The results of the coronary calcification analysis are provided below. - Findings Left Main (LM): 0 Left Anterior Descending (LAD): 51.3 Left Circumflex (LCX): 0 Right Coronary Artery (RCA): 82.5 Total Agatston Score: 133.8 Percentile Rankin-90 Calcium Scoring Interpretation: 0 No identifiable atherosclerotic plaque. Very low cardiovascular disease risk. <5% chance of presence coronary artery disease A Negative Examination 1-10 Minimal Plaque burden. Significant coronary artery disease very unlikely. 11-100 Mild plaque burden. Likely mild or minimal coronary atherosclerosis. 101-400 Moderate plaque burden Moderate non-obstructive coronary artery disease highly likely. Over 400 Extensive plaque burden. High likelihood of at least one significant coronary stenosis (>50% diameter) Conclusion: The total calcium score (134) is between the 75th and 90th percentile for women between the ages of 60 and 64. (Exact percentile calculated to be 83%; this means 82% of the population has a lower calcium score and 17% of the population is a higher calcium score than this patient.) Full evaluation of cardiac risk including assessment of all conventional risk factors, and the scores and percentile rankings reported herein should be evaluated in this context.
== END | disposition home or self-care (01) ==
PROVIDERS: Family Provider Family Medicine; PCP Family Medicine; Referring Provider Family Medicine; Visit Provider Family Medicine
DX: E78.5 Hyperlipidemia, unspecified (principal); Z82.49 Family history of ischemic heart disease and other diseases of the circulatory system
CPT/HCPCS: 75571; 76380

== ENCOUNTER → 2018-12-21 11:41 | Outpatient (CLI) | payer BC, SELFPAY ==
[2018-12-03 12:49] VITALS: BMI 29.8
--- NOTE | 2018-12-21 12:00 | EKG12_ITS ---
Test Reason : PRE OP Blood Pressure : / mmHG Vent. Rate : 071 BPM Atrial Rate : 071 BPM P-R Int : 138 ms QRS Dur : 064 ms QT Int : 372 ms P-R-T Axes : 031 024 036 degrees QTc Int : 404 ms Normal sinus rhythm Normal ECG Confirmed by KINGSTON WARE, HEYDI ([id number]), editor trade journal NETTA SUAZO ([id number]) on 12/24/2018 11:33:03 AM Referred By: Jc Boles Confirmed By:HEYDI ONOFRE MD
[2018-12-21 12:38] LABS: Anion Gap 7 (5-15); BUN 10 mg/dL (7-18); BUN/Creat Ratio 13.2 RATIO (10-20); Calcium,Total 8.8 mg/dL (8.5-10.1); Chloride 105 mmol/L (98-107); Creatinine, Serum 0.76 mg/dL (0.55-1.02); EST Glomerular Filtration Rate 82 mL/min (>60); Est Glom Filt Rate - Afr Amer 99 mL/min (>60); Glucose 105 mg/dL (74-106); Potassium 4.3 mmol/L (3.5-5.1); Sodium Level 142 mmol/L (136-145)
[2018-12-21 12:42] LABS: Hematocrit 43.1 % (37-47); Hemoglobin 13.9 g/dL (12.0-15.0); Mean Corp Hgb Conc 32.3 g/dL (32-36); Mean Corpuscular Hgb 29.7 pg (27.0-32.0); Mean Corpuscular Volume 92.1 fL (81-99); Mean Platelet Vol. 10.7 fl (6.2-12.0); Platelet Count 259 K/mm3 (150-450); RBC Distribution Width CV 12.9 % (11.6-14.6); RBC Distribution Width SD 43.4 fl (35.1-43.9); Red Blood Count 4.68 M/mm3 (4.2-5.4); White Blood Count 4.8 K/mm3 (4.4-11.0)
== END ==
PROVIDERS: Family Provider Family Medicine; PCP Family Medicine; Referring Provider Physician Assistant; Visit Provider Physician Assistant
DX: Z01.818 Encounter for other preprocedural examination (principal); Z01.810 Encounter for preprocedural cardiovascular examination
CPT/HCPCS: 36415; 80048; 85027; 93005

== ENCOUNTER → 2020-08-06 10:52 | Outpatient (CLI) | payer OTHER, SELFPAY ==
[2020-07-13 13:15] VITALS: BMI 30.7
--- NOTE | 2020-08-06 10:54 | BI_ITS ---
MAMMOGRAPHY - BILATERAL SCREENING REASON FOR EXAM: Female, 64 years old. Routine annual screening examination. PERTINENT HISTORY: Non-contributory. TECHNIQUE: Digital bilateral breast renny (3D mammographic acquisition) in the CC and MLO projections. 2-D mediolateral oblique (MLO) and craniocaudad (CC) views of both breasts were obtained. CAD: Full Field Digital Mammography with Computer Added Detection was performed. COMPARISON: Comparison is made with prior study of 11/02/2016. FINDINGS: Breast Composition: The breasts are heterogeneously dense, which may obscure small masses. There are no dominant masses or suspicious calcifications. There is a 7.5 mm x 7.9 mm well-defined nodule in the central portion of the left breast. Correlation with ultrasound is recommended. Stable benign-appearing lateral axillary lymph nodes. No other significant abnormalities are identified. BI/SCRN MAMM (CAD)W/RENNY BILAT IMPRESSION: New 7.5 mm x 7.9 mm well-defined nodule in the central portion of the left breast as described. Correlation with ultrasound is recommended. ASSESSMENT CATEGORY: BIRADS Category 0: Incomplete. Need additional imaging evaluation. A letter regarding these results will be sent to the patient by the facility within 30 days. Approximately 10% of breast cancers are not detected by mammography. A normal mammogram should not delay biopsy of a clinically suspicious abnormality. [id number] Electronically Signed: James Ramos MD at 12:08 EDT , Service support ,
== END ==
PROVIDERS: PCP Family Medicine; Referring Provider Family Medicine; Visit Provider Family Medicine
DX: Z12.31 Encounter for screening mammogram for malignant neoplasm of breast (principal)
CPT/HCPCS: 77063; 77067

== ENCOUNTER → 2020-08-11 10:54 | Outpatient (CLI) | payer OTHER, SELFPAY ==
[2020-07-13 13:15] VITALS: BMI 30.7
--- NOTE | 2020-08-11 10:56 | US_ITS ---
STUDY: ULTRASOUND BREAST - LEFT REASON FOR EXAM: Female, 65 years old. Abnormal screening mammogram. TECHNIQUE: Axial and longitudinal images of the LEFT breast were performed with a high resolution ultrasound transducer. # OF IMAGES: 15 COMPARISON: Comparison is made with prior mammogram dated 08/06/2020. FINDINGS: LEFT Breast: The mammographic abnormality corresponds to a 4 mm x 7 mm x 4 mm complex cystic nodule at the 10 o''clock position of the breast at 3 cm from the nipple. Aspiration is recommended. There is also evidence of dilated ducts.. US/Breast Limited Unilateral IMPRESSION: 4 mm x 7 mm x 4 mm complex cyst at the 10 o''clock position of the breast at 3 cm from nipple. Aspiration is recommended. ASSESSMENT CATEGORY: BIRADS Category 4: Suspicious - Biopsy Should Be Considered. A letter regarding these results will be sent to the patient by the facility within 30 days. Electronically Signed: James Ramos MD at 12:58 EDT , Service support ,
== END ==
PROVIDERS: PCP Family Medicine; Referring Provider Family Medicine; Visit Provider Family Medicine
DX: R92.8 Other abnormal and inconclusive findings on diagnostic imaging of breast (principal)
CPT/HCPCS: 76642

== ENCOUNTER → 2021-08-12 | Outpatient (CLI) | payer BC, SELFPAY ==
--- NOTE | 2021-08-12 12:49 | BI_ITS ---
MAMMOGRAPHY - BILATERAL SCREENING REASON FOR EXAM: Female, 66 years old. Routine annual screening examination. PERTINENT HISTORY: Non-contributory. Remote right excisional breast biopsy. TECHNIQUE: Digital bilateral breast renny (3D mammographic acquisition) in the CC and MLO projections. 2-D mediolateral oblique (MLO) and craniocaudad (CC) views of both breasts were obtained. CAD: Full Field Digital Mammography with Computer Added Detection was performed. COMPARISON: Comparison is made with prior study of 08/06/2020 and 11/02/2016. FINDINGS: Breast Composition: The breasts are heterogeneously dense, which may obscure small masses. There are no dominant masses or suspicious calcifications. Stable 7 mm well-defined nodule in the central portion of the left breast. Prior ultrasound demonstrated this to be a small cyst. No other significant abnormalities are identified. There has been no significant change since the prior study. BI/SCRN MAMM (CAD)W/RENNY BILAT IMPRESSION: Stable bilateral screening mammogram. Yearly follow-up mammogram recommended. (A) ASSESSMENT CATEGORY: BIRADS Category 2: Benign. A letter regarding these results will be sent to the patient by the facility within 30 days. Approximately 10% of breast cancers are not detected by mammography. A normal mammogram should not delay biopsy of a clinically suspicious abnormality. [id number] Electronically Signed: James Ramos MD at 14:06 EDT ,
== END | disposition home or self-care (01) ==
LOC: OPBI 12:48
PROVIDERS: PCP Family Medicine; Referring Provider Family Medicine; Visit Provider Family Medicine
DX: Z12.31 Encounter for screening mammogram for malignant neoplasm of breast (principal)
CPT/HCPCS: 77063; 77067

== ENCOUNTER → 2021-11-03 | Outpatient (CLI) | payer BC, SELFPAY ==
[2021-11-11 15:25] LABS: HPV APTIMA, High Risk Negative (Negative)
== END | disposition home or self-care (01) ==
PROVIDERS: PCP Family Medicine; Visit Provider Nurse Practitioner Women's Health
DX: Z01.419 Encounter for gynecological examination (general) (routine) without abnormal findings (principal)
CPT/HCPCS: 87624; 88175; G0145

== ENCOUNTER → 2021-11-16 | Outpatient (CLI) | payer BC, SELFPAY ==
--- NOTE | 2021-11-16 10:59 | BD_ITS ---
STUDY: DUAL ENERGY X-RAY ABSORPTIOMETRY / DXA REASON FOR EXAM: Female, 66 years old. Postmenopausal TECHNIQUE: Bone Mineral Density (BMD) measurements of lumbar spine and bilateral hips were obtained. COMPARISON: None. FINDINGS: Lumbar Spine (L1-L4): g/cm2 (0.952) / T-score (-0.9) / Z-score (0.9) Findings are suggestive of normal bone density with a low fracture risk. Left Femur Total: g/cm2 (0.922) / T-score (-0.2) / Z-score (1.1) Left Femoral Neck: g/cm2 (0.790) / T-score (-0.5) / Z-score (1.0) Right Femur Total: g/cm2 (0.917) / T-score (-0.2) / Z-score (1.0) Right Femoral Neck: g/cm2 (0.761) / T-score (-0.8) / Z-score (0.7) BD/Dexa Bone Density Study IMPRESSION: The patient is considered normal as outlined below according to World Brandon Organization (WHO) criteria with a low fracture risk. Reference Information: The T-score is the number of standard deviations above or below the standard which is normal for young adults at their peak bone mineral density. The World Health Organization (WHO) interprets the T-scores as follows: Above -1 Normal bone density Between -1 and -2.5 Osteopenia Equal to / or below -2.5 Osteoporosis As a practical clinical guideline, osteopenia may be graded as follows: Mild -1 through -1.5 Moderate -1.6 through -2.0 Severe -2.1 through -2.4 The Z-score is the number of standard deviations above or below age-matched controls. A Z-score of less than -1.5 would be considered abnormal. References: 1. NIH Osteoporosis and Related Bone Diseases www osteo.org 2. International Society for Clinical Densitometry www iscd.org 3. National Osteoporosis Foundation www nof.org Electronically Signed: James Ramos MD at 9:47 EDT ,
== END | disposition home or self-care (01) ==
LOC: OPBD 10:51
PROVIDERS: PCP Family Medicine; Visit Provider Nurse Practitioner Women's Health
DX: Z78.0 Asymptomatic menopausal state (principal)
CPT/HCPCS: 77080

== ENCOUNTER → 2022-01-18 | Outpatient (CLI) | payer BC, SELFPAY ==
[2022-01-18 12:04] LABS: Absolute Lymphocyte Count 2.33 X10^3/uL (0.83-4.51); Absolute Neutrophil Count 2.1 X10^3/uL (2.0-7.7); Basophil# 0.06 X10^3/uL; Basophil% 1.2 % (0-1); Eosinophil# 0.22 X10^3/uL; Eosinophils% 4.2 % (0-5); Hematocrit 40.4 % (37-47); Lymphocyte # 2.33 X10^3/ul (0.83-4.51); Mean Corp Hgb Conc 32.2 g/dL (32-36); Mean Corpuscular Hgb 29.5 pg (27.0-32.0); Mean Corpuscular Volume 91.6 fL (81-99); Mean Platelet Vol. 11.2 fl (6.2-12.0); Monocyte# 0.51 X10^3/uL; Monocyte% 9.8 % (0-10); NRBC Flagged by Analyzer 0 % (0-5); Neutrophil # 2.05 X10^3/uL (2.7-7.7); Neutrophil % 39.6 % (47-70); Platelet Count 267 K/mm3 (150-450); RBC Distribution Width CV 12.5 % (11.6-14.6); RBC Distribution Width SD 41.9 fl (35.1-43.9); Red Blood Count 4.41 M/mm3 (4.2-5.4); White Blood Count 5.2 K/mm3 (4.4-11.0)
[2022-01-18 12:32] LABS: ALB/GLOB Ratio 0.9 RATIO (0.9-2.4); AST(SGOT) 19 U/L (15-37); Alanine Aminotransfer ALT/SGPT 31 U/L (13-56); Albumin, Serum 3.7 g/dL (3.2-5.0); Alkaline Phosphatase 94 U/L (45-117); Anion Gap 4 (5-15); BUN 10 mg/dL (7-18); BUN/Creat Ratio 13.6 RATIO (10-20); CPK Total, Creatine Kinase 100 U/L (26-192); Calcium,Total 9.1 mg/dL (8.5-10.1); Chloride 102 mmol/L (98-107); Cholesterol 218 mg/dL (200); Creatinine, Serum 0.74 mg/dL (0.55-1.02); EST Glomerular Filtration Rate 84 mL/min (>60); Est Glom Filt Rate - Afr Amer 102 mL/min (>60); Globulin 3.9 g/dL (2.2-4.2); Glucose 96 mg/dL (74-106); High Density Lipoprotein 54 mg/dL; Potassium 4.6 mmol/L (3.5-5.1); Protein, Total 7.6 g/dL (6.4-8.2); Sodium Level 138 mmol/L (136-145); Triglycerides 112 mg/dL; Very Low Density Lipoprotein 22 mg/dL (5-40)
== END | disposition home or self-care (01) ==
LOC: BFHLAB 10:22
PROVIDERS: PCP Family Medicine; Visit Provider Family Medicine
DX: E78.5 Hyperlipidemia, unspecified (principal); Z51.81 Encounter for therapeutic drug level monitoring; M79.10 Myalgia, unspecified site
CPT/HCPCS: 36415; 80053; 80061; 82550; 85025

== ENCOUNTER 2022-04-24 05:26 | Day surgery (SDC) | payer BC, SELFPAY ==
[2022-04-24] VITALS (7 sets, daily range): BP systolic 98–156; BP diastolic 63–95; PULSE 79–96; RESP 14–18; TEMP 36.4–36.8; O2SAT 96–100; BMI 29.9
[2022-04-24] MEDS: Lactated Ringers 1,000 ML 15 ML IV (06:08)
--- NOTE | 2022-04-24 06:30 | COLBX_PTH ---
PATIENT: BIANCA BANEGAS LOC: EN U#:[id number] AGE/SX: 66/F ROOM: RE04/24/[address]: Dr. Chele Ramsey DO : 1955 BED: DIS: 04/24/2022 SPEC #: [id number] RECD: 04/24/22 11:03 STATUS: SHEELA NADIA #: [id number] ADRIEL: 04/24/22 06:[address]: Chele Ramsey DEPT: SURGICAL PATHOLOGY RECD BY: Christina Morris ENTERED: 04/24/22 12:42 SP TYPE: COLON BX OTHR DR: Dr. Haley Levin DO Tissues: A - Cecum, NOS B - COLON BIOPSY Procedures: Surgery Specimen Level IV HEADER OPERATION: Colonoscopy (MAC) with biopsies PRE-OP DIAGNOSIS: History of colon cancer TISSUE SUBMITTED: A ? Cecal cap polyp biopsy, B ? Anastomosis biopsy MICROSCOPIC DIAGNOSIS A. Cecal cap polyp, biopsy: Tubular adenoma. B. Anastomosis, biopsy: Minimal architectural distortion. No evidence of malignancy. AM:theo 04/25/2022 MICROSCOPIC DESCRIPTION Slides are reviewed. GROSS DESCRIPTION A - Received in fixative is one container labeled with the patient's name and designated cecal cap polyp biopsy. The specimen consists of two irregular fragments of light fernandez soft tissue that in aggregate measure 0.6 x 0.3 x 0.1 cm. The specimen is totally submitted in one cassette. B - Received in fixative is one container labeled with the patient's name and designated anastomosis biopsy. The specimen consists of two irregular fragments of light fernandez soft tissue that in aggregate measure 0.8 x 0.4 x 0.1 cm. The specimen is totally submitted in one cassette. / SJ:theo 04/24/2022 TC:5 CPT: 22926 x2
--- NOTE | 2022-04-24 06:37 | HP.PCM_ITS ---
History and Physical Date of Admission: 04/24/22 DARBY BANEGAS, is a 66 F who presents to the office today for Initial consult. Darby established with this clinic 02.15.22 with referral from PRESCRIPTION CLERK to establish care for history of colon cancer. Cancer contained in polyp s/p chemotherapy and radiation in 2001. Colonoscopy almost five years prior with [facility]; however there was difficulty with completion and was sent for barium enema which was incomplete. ROS Const Constitutional: No other (as above) Exam Const General: cooperative, healthy appearing, comfortable and no acute distress Nutritional Appearance: well nourished Orientation: alert, awake and oriented x3 HENMT Head: normal to inspection Ears: hearing grossly normal bilaterally, external ears normal, TM's normal bilaterally and EAC's normal Nose: external nose normal, nares normal, septum normal and nasal discharge clear bilaterally Face and sinus: normal facial exam, sinuses nontender and face symmetric Mouth: oral mucosae normal, lip normal, tongue normal and moist mucous membranes Throat: posterior oropharynx normal, tonsils normal, uvula midline and no postnasal drainage Eyes General: appearance normal, both eyes and all related structures Neck Neck: normal visual inspection, full ROM, no lymphadenopathy, no meningeal signs and supple Neck mass: No Thyroid: thyroid normal Lymphatic: no lymphadenopathy noted Chest Chest palpation & inspection: normal inspection of the chest Resp Effort & Inspection: normal respiratory effort, able to speak in complete sentences, symmetric chest movement and no cough (No unsolicited cough during today's exam) Auscultation: Bilateral: Clear to Auscultation Cardio Palpation: normal PMI Rate: regular rate Rhythm: regular rhythm Heart Sounds: S1 normal, S2 normal, no gallops, no murmurs and no rubs Pulses: radial pulses present GI Inspection: normal to inspection Palpation: soft and no hepatosplenomegaly Skin General: no rashes or lesions noted Neuro General: patient alert, patient awake, patient oriented x3 and gait normal Cognition: normal cognition Speech: speech normal Gait: normal gait Motor: muscle tone normal throughout Sensory Exam: no sensory deficits noted Extrem General: normal to inspection Psych Appearance: grossly normal Mental Status: mental status grossly normal Mood: congruent mood Affect: normal affect Speech and Movement: speech and movement normal Attitude: cooperative Thought Process: normal Thought Content: normal Judgment: judgment good Quality Reporting Tobacco Screening ([facility] 138) Smoking Status: Never smoker Assessment and Plan Assessment and Plan (1) History of colon cancer: ?Status:?Chronic ?Plan: She will undergo a surveillance because of her history of rectal cancer status posttreatment with radiation and chemotherapy.? She was explained alternatives, risk, benefits including not withstanding bleeding, infection, sepsis, perforation, need for discharge or .? She will have an ASA of 1. I have examined the patient and the H&P has been reviewed. There are no clinical changes since date of exam.
--- NOTE | 2022-04-24 07:24 | OP.COLON_ITS ---
Patient Name: Darby Larson Procedure Date: 04/24/2022 6:15 AM Date of : 1955 Age: 66 Procedure: Colonoscopy Indications: Colorectal cancer Providers: Chele Ramsey DO Medicines: Monitored Anesthesia Care Patient Profile: This is a 66 year old female. Refer to note in patient chart for documentation of history and physical. Last Colonoscopy: 3 years ago. Complications: No immediate complications. Procedure: Pre-Anesthesia Assessment: - Prior to the procedure, a History and Physical was performed, and patient medications and allergies were reviewed. The risks and benefits of the procedure and the sedation options and risks were discussed with the patient. All questions were answered and informed consent was obtained. Patient identification and proposed procedure were verified by the physician. Mental Status Examination: normal. Respiratory Examination: clear to auscultation. CV Examination: normal. Prophylactic Antibiotics: The patient does not require prophylactic antibiotics. Prior Anticoagulants: The patient has taken no previous anticoagulant or antiplatelet agents. ASA Grade Assessment: II - A patient with mild systemic disease. After reviewing the risks and benefits, the patient was deemed in satisfactory condition to undergo the procedure. The anesthesia plan was to use monitored anesthesia care (MAC). Immediately prior to administration of medications, the patient was re-assessed for adequacy to receive sedatives. The heart rate, respiratory rate, oxygen saturations, blood pressure, adequacy of pulmonary ventilation, and response to care were monitored throughout the procedure. The physical status of the patient was re-assessed after the procedure. After I obtained informed consent, the scope was passed under direct vision. Throughout the procedure, the patient's blood pressure, pulse, and oxygen saturations were monitored continuously. The Colonoscope was introduced through the anus and advanced to the cecum, identified by appendiceal orifice and ileocecal valve. The colonoscopy was performed without difficulty. The patient tolerated the procedure well. The quality of the bowel preparation was good. Scope In: 6:42:28 AM Scope Withdrawal Time 0 hours 10 minutes 25 seconds Scope Out: 7:02:15 AM Total Procedure Duration Time 0 hours 19 minutes 47 seconds Findings: The digital rectal exam findings include decreased sphincter tone. Pertinent negatives include no palpable rectal lesions. The mucosa vascular pattern in the rectum was locally increased. Biopsies were taken with a cold forceps for histology. Verification of patient identification for the specimen was done. Estimated blood loss was minimal. A 2 mm polyp was found in the cecum. The polyp was sessile. The polyp was removed with a cold snare. Resection and retrieval were complete. Verification of patient identification for the specimen was done. Estimated blood loss was minimal. Impression: - Decreased sphincter tone found on digital rectal exam. - Increased mucosa vascular pattern in the rectum. Biopsied. - One 2 mm polyp in the cecum, removed with a cold snare. Resected and retrieved. Recommendation: - Repeat colonoscopy in 5 years for surveillance. - Continue present medications. Procedure Code(s): --- Professional --- 90975, Colonoscopy, flexible; with removal of tumor(s), polyp(s), or other lesion(s) by snare technique 74900, 59, Colonoscopy, flexible; with biopsy, single or multiple CPT copyright 2017 [employer]. All rights reserved. The codes documented in this report are preliminary and upon rn documentation review may be revised to meet current compliance requirements. Chele Ramsey DO 04/24/2022 7:23:44 AM This report has been signed electronically. Number of Addenda: 0 Note Initiated On: 04/24/2022 6:15 AM
--- NOTE | 2022-04-24 07:25 | OP.CCLET_ITS ---
04/24/2022 Haley Levin [address] [place] [address] Re : Colonoscopy procedure for Darby Larson Dear Dr. Levin This procedure was performed on Sunday, April 24, 2022. My impressions and recommendations are as follows: Impressions : - Decreased sphincter tone found on digital rectal exam. - Increased mucosa vascular pattern in the rectum. Biopsied. - One 2 mm polyp in the cecum, removed with a cold snare. Resected and retrieved. Recommendations : - Repeat colonoscopy in 5 years for surveillance. - Continue present medications. My findings are described in the full procedure note, which is enclosed. If I can be of further assistance, please feel free to contact me at . Sincerely, Chele Ramsey, 04/24/2022 7:23:44 AM This report has been signed electronically.
== END 2022-04-24 08:00 | disposition home or self-care (01) ==
LOC: EN 05:26 → AC 05:29
PROVIDERS: PCP Family Medicine; Referring Provider Internal Medicine Gastroenterology; Visit Provider Internal Medicine Gastroenterology
PROC: 0DJD8ZZ Inspection of Lower Intestinal Tract, Via Natural or Artificial Opening Endoscopic (ICD-10-PCS; CPT 45378; principal; 2022-04-24 06:25)
DX: D12.0 Benign neoplasm of cecum (principal); Z92.21 Personal history of antineoplastic chemotherapy; Z85.038 Personal history of other malignant neoplasm of large intestine; E78.00 Pure hypercholesterolemia, unspecified; Z79.899 Other long term (current) drug therapy
CPT/HCPCS: 45385; 45380; 88305; J7120; J2405

== ENCOUNTER → 2023-09-11 | Outpatient (CLI) | payer MEDICARE, SELFPAY ==
[2023-09-11 17:41] LABS: Absolute Lymphocyte Count 2.48 X10^3/uL (0.83-4.51); Absolute Neutrophil Count 2.3 X10^3/uL (2.0-7.7); Basophil# 0.04 X10^3/uL; Basophil% 0.7 % (0-1); Eosinophil# 0.16 X10^3/uL; Hemoglobin 12.9 g/dL (12.0-15.0); Lymphocyte # 2.48 X10^3/ul (0.83-4.51); Mean Corp Hgb Conc 32.3 g/dL (32-36); Mean Corpuscular Hgb 28.9 pg (27.0-32.0); Mean Corpuscular Volume 89.5 fL (81-99); Mean Platelet Vol. 11.2 fl (6.2-12.0); Monocyte# 0.39 X10^3/uL; Monocyte% 7.2 % (0-10); NRBC Flagged by Analyzer 0 % (0-5); Neutrophil # 2.31 X10^3/uL (2.7-7.7); Neutrophil % 42.9 % (47-70); Platelet Count 277 K/mm3 (150-450); RBC Distribution Width CV 12.9 % (11.6-14.6); RBC Distribution Width SD 42.3 fl (35.1-43.9); Red Blood Count 4.47 M/mm3 (4.2-5.4); White Blood Count 5.4 K/mm3 (4.4-11.0)
[2023-09-11 17:56] LABS: ALB/GLOB Ratio 0.8 RATIO (0.9-2.4); AST(SGOT) 26 U/L (15-37); Alanine Aminotransfer ALT/SGPT 36 U/L (13-56); Albumin, Serum 3.4 g/dL (3.2-5.0); Alkaline Phosphatase 97 U/L (45-117); Anion Gap 7 (5-15); BUN 9 mg/dL (7-18); BUN/Creat Ratio 12.1 RATIO (10-20); Calcium,Total 8.9 mg/dL (8.5-10.1); Chloride 106 mmol/L (98-107); Cholesterol 219 mg/dL (200); Creatinine, Serum 0.74 mg/dL (0.55-1.02); EST Glomerular Filtration Rate 83 mL/min (>60); Est Glom Filt Rate - Afr Amer 101 mL/min (>60); Globulin 4.1 g/dL (2.2-4.2); Glucose 90 mg/dL (74-106); High Density Lipoprotein 46 mg/dL; Potassium 4.4 mmol/L (3.5-5.1); Protein, Total 7.5 g/dL (6.4-8.2); Sodium Level 140 mmol/L (136-145); Triglycerides 143 mg/dL; Very Low Density Lipoprotein 29 mg/dL (5-40)
[2023-09-11 18:02] LABS: Vitamin D,25 Hydroxy 37.3 ng/mL
== END | disposition home or self-care (01) ==
LOC: MTLAB 13:56
PROVIDERS: PCP Family Medicine; Referring Provider Nurse Practitioner Family; Visit Provider Nurse Practitioner Family
DX: I10 Essential (primary) hypertension (principal); E78.5 Hyperlipidemia, unspecified; E55.9 Vitamin D deficiency, unspecified
CPT/HCPCS: 36415; 80053; 80061; 82306; 85025

== ENCOUNTER → 2023-09-28 | Outpatient (CLI) | payer MEDICARE, SELFPAY ==
--- NOTE | 2023-09-28 13:46 | BI_ITS ---
MAMMOGRAPHY - BILATERAL SCREENING REASON FOR EXAM: Female, 68 years old. Routine annual screening examination. PERTINENT HISTORY: Non-contributory. History of prior right breast aspiration in right excisional breast biopsy. TECHNIQUE: Digital bilateral breast renny (3D mammographic acquisition) in the CC and MLO projections. 2-D mediolateral oblique (MLO) and craniocaudad (CC) views of both breasts were obtained. CAD: Full Field Digital Mammography with Computer Added Detection was performed. COMPARISON: Comparison is made with prior study of August 12, 2021 and August 06, 2020. FINDINGS: Breast Composition: The breasts are heterogeneously dense, which may obscure small masses. There are no dominant masses or suspicious calcifications. Stable bilateral fat containing axillary lymph nodes. No other significant abnormalities are identified. There has been no significant change since the prior study. BI/SCRN MAMM (CAD)W/RENNY BILAT IMPRESSION: Stable bilateral screening mammogram. Yearly follow-up mammogram recommended. (A) ASSESSMENT CATEGORY: BIRADS Category 2: Benign. A letter regarding these results will be sent to the patient by the facility within 30 days. Approximately 10% of breast cancers are not detected by mammography. A normal mammogram should not delay biopsy of a clinically suspicious abnormality. [id number] Electronically Signed: James Ramos MD at 14:57 EDT ,
== END | disposition home or self-care (01) ==
LOC: OPBI 13:44
PROVIDERS: PCP Family Medicine; Referring Provider Family Medicine; Visit Provider Family Medicine
DX: Z12.31 Encounter for screening mammogram for malignant neoplasm of breast (principal)
CPT/HCPCS: 77063; 77067

== ENCOUNTER → 2024-09-11 | Outpatient (CLI) | payer MEDICARE, SELFPAY ==
[2024-09-11 12:26] LABS: Hematocrit 38.7 % (37-47); Hemoglobin 12.7 g/dL (12.0-15.0); Immature Granulocytes Count 0.040 X10^3/uL (0.0-0.0); Mean Corp Hgb Conc 32.8 g/dL (32-36); Mean Corpuscular Volume 91.1 fL (81-99); Mean Platelet Vol. 11.0 fl (6.2-12.0); NRBC Flagged by Analyzer 0 % (0-5); Platelet Count 277 K/mm3 (150-450); RBC Distribution Width CV 13.2 % (11.6-14.6); RBC Distribution Width SD 43.9 fl (35.1-43.9); Red Blood Count 4.25 M/mm3 (4.2-5.4); White Blood Count 5.4 K/mm3 (4.4-11.0)
[2024-09-11 13:21] LABS: AST(SGOT) 21 U/L (<=31); Alanine Aminotransfer ALT/SGPT 26 U/L (<=34); Albumin, Serum 4.2 g/dL (3.4-4.8); Alkaline Phosphatase 99 U/L (35-104); BUN 13 mg/dL (4-19); BUN/Creat Ratio 17.5 RATIO (10-20); Calcium,Total 9.3 mg/dL (7.6-11.0); Carbon Dioxide 26.1 mmol/L (21.0-32.0); Chloride 103 mmol/L (98-108); Cholesterol 284 mg/dL (<=200); Globulin 3.1 g/dL (2.2-4.2); Glucose 106 mg/dL (70-99); Potassium 4.6 mmol/L (3.3-5.1); Triglycerides 128 mg/dL
[2024-09-11 13:22] LABS: Anion Gap 11 (5-15); Low Density Lipoprotein Calc. 209 mg/dL; Very Low Density Lipoprotein 26 mg/dL (5-40); Vitamin D,25 Hydroxy 34.9 ng/mL (30-100); cholesterol:hdl ratio screen 5.70
== END | disposition home or self-care (01) ==
LOC: BFHLAB 10:56
PROVIDERS: PCP Family Medicine; Visit Provider Family Medicine
DX: I10 Essential (primary) hypertension (principal); E78.5 Hyperlipidemia, unspecified; E55.9 Vitamin D deficiency, unspecified
CPT/HCPCS: 36415; 80053; 80061; 82306; 85025

== ENCOUNTER → 2025-01-22 | Outpatient (CLI) | payer MEDICARE, SELFPAY ==
--- NOTE | 2025-01-22 14:03 | RAD_ITS ---
PROCEDURE: SINUSES MIN 3 VIEWS 01/22/2025 REASON FOR EXAM: SINUSITIS TECHNIQUE: Procedure Code: RADSI Modality: DX Procedure: SINUSES MIN 3 VIEWS COMPARISON: None FINDINGS: Hyperostosis frontalis interna. The sinuses are well aerated. RAD/Sinuses min 3 Views IMPRESSION: No acute abnormality is seen. Reading Location: [id number]
--- NOTE | 2025-01-22 14:03 | RAD_ITS ---
PROCEDURE: CHEST PA AND LATERAL 01/22/2025 REASON FOR EXAM: COUGH TECHNIQUE: Procedure Code: RADCXR Modality: DX Procedure: CHEST PA AND LATERAL FINDINGS: No focal consolidation. No pleural effusion or pneumothorax. Cardiac silhouette is within normal limits. No acute fractures. RAD/Chest PA and Lateral IMPRESSION: No focal consolidations. Reading Location: [facility]
== END | disposition home or self-care (01) ==
LOC: MTLAB 14:00 → MTRAD 14:01
PROVIDERS: PCP Family Medicine; Referring Provider Family Medicine; Visit Provider Family Medicine
DX: R05.9 Cough, unspecified (principal); J32.9 Chronic sinusitis, unspecified
CPT/HCPCS: 70220; 71046